=== PATIENT | male | born 1945 | race Caucasian/White ===

== ENCOUNTER 2020-11-22 14:45 | Emergency (ER) | payer OTHER, SELFPAY ==
--- NOTE | ~2020-11-22 | XR_ITS ---
XR ankle RT min 3V 11/22/2020 15:06 Indication: Status post fall from ladder. Procedure: 4 views right ankle Comparison: No prior studies for comparison. Findings: There is a comminuted displaced trimalleolar fracture. Cannot exclude fracture of the talus . Moderate soft tissue swelling. Impression: 1: Comminuted displaced trimalleolar fracture. Possible fracture/subluxation of the talus. Reviewed, dictated and finalized at location B. Impression: 1: Comminuted displaced trimalleolar fracture. Possible fracture/subluxation of the talus.
[2020-11-22 14:51] VITALS: BP 161/59; PULSE 92; RESP 18; TEMP 36.6; O2SAT 97
--- NOTE | 2020-11-22 14:56 | ED.LOWEXIN ---
HPI - Extremity Injury (Lower) General Chief Complaint: Extremity Injury, Lower Stated Complaint: R Ankle Injury Time Seen by Provider: 11/22/20 14:55 History of Present Illness HPI Narrative: 75 yo male presents to the ED for an ankle injury. He was on a ladder cleaning his gutters, which are about 12 feet high, when he fell and landed on his right foot. He has a deformity to the right ankle. He believes that he saw bone protruding from a wound on the medial side of the ankle after the fall. He has moderate pain when not moving. No blood thinners. Tetanus shot 1 month ago. Related Data Home Medications Medication Instructions Recorded Confirmed aspirin 81 mg tablet,delayed 81 mg PO DAILY 08/04/19 09/26/20 release Allergies Allergy/AdvReac Type Severity Reaction Status Date / Time niacin Allergy Unknown Unknown Verified 11/22/20 14:55 Iklhchk-Wqz-Ece Reductase Allergy Unknown Unknown Verified 11/22/20 14:55 Inhibitor Review of Systems Review of Systems: All systems reviewed & are unremarkable except as noted in HPI and below PMFSH Past Medical History Medical History Hypertensive heart disease without congestive heart failure Surgical History Surgical History Presence of coronary angioplasty implant and graft Family History Family History Sibling Family history of alcoholism Heart disease Mother Family history of malignant neoplasm Pancreatic cancer Hypertension Father Lung cancer Social History Social History Smoking packs per day: 1 Smoking cigarettes per day: 20.0 Years smoked: 30 Smoking pack-years: 30.00 Smoking status: Former smoker Tobacco type: cigarettes Second hand tobacco smoke exposure: No Smoking end date: 06/03/87 Alcohol intake: never Substance use: never Substance use type: does not use Gender identity (if verbalized by the patient): Male Exam Const: General: healthy appearing, no acute distress and alert Orientation/consciousness: patient oriented x3 HENMT: Head: normal to inspection Resp: Effort & Inspection: normal respiratory effort Auscultation: clear to auscultation bilaterally Cardio: Rate: regular rate Rhythm: regular rhythm Other: 1+ right DP GI: GI Palp: Yes Soft to palpation and No Tenderness to palpation present (GI) Skin: Other: 4 cm laceration to medial right ankle Neuro: General: patient oriented x3, moves all extremities and no focal motor deficits Speech: normal speech Other: sensation intact to distal RLE. Wiggles toes on the right Extrem: Other: obvious deformity of right ankle Course Vital Signs Vital signs: Vital Signs Temperature 36.6 C 11/22/20 14:51 Pulse Rate 92 11/22/20 14:51 Respiratory Rate 18 11/22/20 14:51 Blood Pressure 161/59 H 11/22/20 14:51 Pulse Oximetry 97 11/22/20 14:51 Temperature 36.6 C 11/22/20 14:51 Pulse Rate 85 11/22/20 15:46 Respiratory Rate 21 H 11/22/20 15:46 Blood Pressure 176/75 H 11/22/20 15:46 Pulse Oximetry 97 11/22/20 14:51 Procedures Orthopedic Fracture Reduction Fracture #1: Side: right Fracture Reduction Location: tibia and fibula Analgesia: hematoma block Pre-Procedure Neuro Vascular Exam: normal Technique: direct manipulation Post Reduction X-rays Demonstrate: other (x-ray deffered to accepting facility) Post-reduction neuro exam: intact Post-reduction vascular exam: intact Splint Applied: Yes Patient Tolerated Procedure: well Additional Comments: open fracture was washed out extensively with saline. Some debris was removed. Bone visualized Orthopedic Splinting/Casting Injury #1: Lower Extremity Injury Location: ankle Lower Ex
[2020-11-22] MEDS: MORPHINE SULFATE (*CRX) 4 MG/ML INJ IV PUSH (15:06)
[2020-11-22] MEDS: ceFAZolin SODIUM 1 GM VIAL IV PUSH (15:13)
[2020-11-22 15:40] VITALS: PULSE 82; RESP 14
[2020-11-22 15:45] VITALS: PULSE 85; RESP 20
[2020-11-22 15:46] VITALS: BP 176/75; PULSE 85; RESP 21
[2020-11-22 16:49] VITALS: BP 150/72; PULSE 86; RESP 18; O2SAT 99
== END 2020-11-22 16:50 | disposition short-term general hospital (02) ==
PROVIDERS: Emergency Provider Emergency Medicine; PCP Internal Medicine
DX: S82.851B Displaced trimalleolar fracture of right lower leg, initial encounter for open fracture type I or II (principal); Z79.82 Long term (current) use of aspirin; I11.9 Hypertensive heart disease without heart failure; Z95.5 Presence of coronary angioplasty implant and graft; Z87.891 Personal history of nicotine dependence; W11.XXXA Fall on and from ladder, initial encounter
CPT/HCPCS: 27810; 27818; 73610; 96374; 96375; 99285; J0690; J2270

== ENCOUNTER 2022-09-12 10:15 | Outpatient (CLI) | payer OTHER, SELFPAY | END 2022-09-12 10:16 | disposition home or self-care (01) | LOC: ANHBWCAUD 10:16 | PROVIDERS: PCP Family Medicine; Visit Provider Family Medicine | DX: H90.3 Sensorineural hearing loss, bilateral (principal) | CPT/HCPCS: 92557; 92567 ==

== ENCOUNTER 2023-09-10 08:35 | Outpatient (CLI) | payer OTHER, SELFPAY ==
[2023-09-10 20:05] LABS: Alanine Aminotransferase 15 U/L (6-50); Albumin Level 4.6 g/dL (3.5-5.1); Alkaline Phosphatase 74 U/L (38-126); Anion Gap 10 mmol/L (4-12); Aspartate Amino Transferase 34 U/L (17-59); Bilirubin,Total 0.7 mg/dL (0.2-1.3); Blood Urea Nitrogen 20 mg/dL (9-20); Calcium 9.7 mg/dL (8.4-10.2); Carbon Dioxide 24 mmol/L (22-30); Chloride 107 mmol/L (98-107); Cholesterol 206 mg/dL (0-200); Estimated Glomerular Filt Rate 49; Glucose 75 mg/dL (65-110); HDL Direct 35 mg/dL; Potassium 4.9 mmol/L (3.4-5.0); Sodium 141 mmol/L (137-145); Triglycerides 253 mg/dL (<150)
[2023-09-10 20:16] LABS: LDL Cholesterol Direct 110 mg/dL
[2023-09-10 20:30] LABS: Prostate Specific Antigen 1.4 ng/mL (< OR = 4.0)
== END 2023-09-10 08:36 | disposition home or self-care (01) ==
LOC: ANHGOSHLAB 08:36
PROVIDERS: PCP Family Medicine; Visit Provider Family Medicine
DX: Z12.5 Encounter for screening for malignant neoplasm of prostate (principal); I25.10 Atherosclerotic heart disease of native coronary artery without angina pectoris; Z13.220 Encounter for screening for lipoid disorders; Z13.228 Encounter for screening for other metabolic disorders
CPT/HCPCS: 36415; 80053; 80061; 84153; G0103

== ENCOUNTER 2023-11-12 11:36 | Emergency (ER) | payer OTHER, SELFPAY ==
[2023-11-12 11:51] VITALS: BP 183/89; PULSE 70; RESP 16; TEMP 36.6; O2SAT 99
--- NOTE | 2023-11-12 12:06 | ED.GENADULT ---
HPI - General Adult General Chief complaint: Skin/Abscess/Foreign Body Stated complaint: RASH Time Seen by Provider: 11/12/23 12:06 Source: patient, RN notes reviewed and old records reviewed Mode of arrival: ambulatory Limitations: no limitations History of Present Illness HPI narrative: 78-year-old male presents to the [facility] with concerns for a rash to his bilateral arms. Rash started 3 weeks ago after he was doing yd work. Has been putting on cortisone 10. Using his metronidazole that he puts on his face for rosacea Onset (ago): week(s) (3) Treatments prior to arrival: other (Cortisone) Related Data Home Medications Medication Instructions Recorded Confirmed aspirin 81 mg tablet,delayed 81 mg PO DAILY 08/04/19 11/12/23 release Allergies Allergy/AdvReac Type Severity Reaction Status Date / Time colesevelam [From WelChol] Allergy Intermediate Rash Verified 11/12/23 11:47 Stibkrm-PZM-DrC Reductase Allergy Unknown Unknown Verified 11/12/23 11:47 Inhibitor [Jvpreef-Jly-Bef Reductase Inhibitor] niacin AdvReac Unknown Unknown Verified 11/12/23 11:47 Review of Systems Review of Systems: All systems reviewed & are unremarkable except as noted in HPI and below Constitutional: Constitutional: Reports no additional constitutional complaints Eyes: Eyes: Reports no additional eye complaints ENT: Reports system reviewed and no additional complaints, except as documented Cardiovascular: Cardiovascular: Reports no additional cardiovascular complaints, Denies chest pain and Denies dyspnea Respiratory: Respiratory: Reports no additional respiratory complaints, Denies chest congestion, Denies cough and Denies dyspnea Gastrointestinal: Gastrointestinal: Reports no additional gastrointestinal complaints, Denies abdominal pain, Denies nausea and Denies vomiting Musculoskeletal: Musculoskeletal: Reports no additional musculoskeletal complaints Integumentary/Breasts: Skin/Breast: Reports as per HPI and Reports rash Neurologic: Reports system reviewed and no additional complaints, except as documented Psychiatric: Psychiatric: Reports no additional psychiatric complaints Allergic/Immunologic: Allergic/Immunologic: Reports no additional allergic/immunologic complaints PMF Past Medical History Medical History Hypertensive heart disease without congestive heart failure Surgical History Surgical History Presence of coronary angioplasty implant and graft Family History Family History Sibling Family history of alcoholism Heart disease Mother Family history of malignant neoplasm Pancreatic cancer Hypertension Father Lung cancer Social History Social History Social History: Caffeine-coffee/soda Smoking packs per day: 1 Smoking cigarettes per day: 20.0 Years smoked: 30 Smoking pack-years: 30.00 Smoking status: Former smoker Tobacco type: cigarettes Second hand tobacco smoke exposure: No Smoking end date: 06/03/87 Alcohol intake: never Substance use: never Substance use type: does not use Lack of Transportation: No Lack of Food: Never True Current Housing: I Have Housing Concerned About Future Housing: No Difficulty Paying Gas/Electric Bills: No Difficulty Paying for Meds: No Currently Unemployed: No Education: High School Diploma/GED Difficulty w/ Childcare or Family Care: No Living arrangements: with family Occupation/Education: retired Gender identity (if verbalized by the patient): Male Comments At the time of my signature, I reviewed and agree with the nursing past medical, surgical, social, and family history. There is no relevant family history pertinent to the patient complaint. Exam Const: General: cooperativ
== END 2023-11-12 12:24 | disposition home or self-care (01) ==
PROVIDERS: Emergency Provider Nurse Practitioner; PCP Family Medicine
DX: L25.9 Unspecified contact dermatitis, unspecified cause (principal); Z87.891 Personal history of nicotine dependence; I10 Essential (primary) hypertension; Z79.82 Long term (current) use of aspirin; Z95.5 Presence of coronary angioplasty implant and graft
CPT/HCPCS: 99213; G0463

== ENCOUNTER 2024-12-14 11:51 | Outpatient (CLI) | payer OTHER, SELFPAY ==
--- NOTE | ~2024-12-14 | US_ITS ---
Renal-Bladder ultrasound Clinical History: Chronic kidney disease Technique: Real-time sonographic imaging of the kidneys and urinary bladder was performed. Findings: The right kidney measures 10.9 cm in length and the left kidney measures 10.4 cm. There is no hydronephrosis or renal calculus identified. Renal cortical echogenicity is within normal limits. Bilateral renal cysts are present. The urinary bladder is moderately distended at the time of this exam. No intraluminal echoes are iden tified. No abnormal wall thickening is seen. Impression: No significant abnormality seen. Reviewed, dictated and finalized at location . Impression: No significant abnormality seen.
== END 2024-12-14 11:52 | disposition home or self-care (01) ==
LOC: MICIMG 11:52
PROVIDERS: PCP Emergency Medicine; Visit Provider Internal Medicine Nephrology
DX: I12.9 Hypertensive chronic kidney disease with stage 1 through stage 4 chronic kidney disease, or unspecified chronic kidney disease (principal); N18.31 Chronic kidney disease, stage 3a
CPT/HCPCS: 76775